=== PATIENT | male | born 1940 | race Caucasian/White ===

== ENCOUNTER 2017-01-03 16:16 | Emergency (ER) | payer MEDICARE, BC ==
[~2017-01-03 16:16] MED LIST: KLONO5 PO; LEVOTHROID75 MCG PO; LOP25 PO; P5 PO; T PO; VASOTEC5 PO; VOLT75 PO
[2017-01-03 17:10] LABS: BASOPHILS 0.3 %; BASOPHILS ABSOLUTE 0.03 10/3/uL (0.0-0.16); EOSINOPHILS 0.4 %; EOSINOPHILS ABSOLUTE 0.04 10/3/uL (0.0-0.53); HEMATOCRIT 48.6 % (40.0-51.0); IMMATURE GRANULOCYTES 0.4 %; IMMATURE GRANULOCYTES ABSOLUTE 0.04 10/3/uL (0.0-0.11); LYMPHOCYTES 11.3 %; LYMPHOCYTES ABSOLUTE 1.17 10/3/uL (0.67-4.30); MEAN CORPUS HGB CONC 32.9 g/dL (32.0-36.0); MEAN CORPUSCULAR HEMOGLOB 29.1 pg (26.0-34.0); MEAN PLATELET VOLUME 9.1 fL (9.2-13.0); MONOCYTES 12.1 %; MONOCYTES ABSOLUTE 1.25 10/3/uL (0.21-1.20); NEUTROPHILS 75.5 %; PLATELET COUNT 175 10/3/uL (150-400); RBC DISTRIBUTION WIDTH 16.4 % (12.0-16.0)
[2017-01-03 17:11] LABS: MEAN CORPUSCULAR VOLUME 88.4 fL (80-100); WHITE BLOOD CELLS 10.3 10/3/uL (4.5-10.5)
[2017-01-03 17:12] LABS: MANUAL DIFF NO %
[2017-01-03 17:17] LABS: INTERNATIONAL NORMAL RATI 1.3 UNITS (-); PROTIME (NOT ORD) 15.8 SEC (12.0-14.5)
[2017-01-03 17:28] LABS: BUN (BLOOD UREA NITROGEN) 24 MG/DL (6-23); CALCIUM, SERUM 9.8 MG/DL (8.5-10.4); CHEST PAIN PROFILE TAT 0 Hrs 23 Mins; CHLORIDE, SERUM 105 MMOL/L (96-112); CO2 (CARBON DIOXIDE) 29 MMOL/L (24-34); CREATININE 1.47 MG/DL (0.70-1.30); GFR AFRICAN AMERICAN 53 ML/MIN (>=60); GFR NON AFRICAN AMERICAN 45 ML/MIN (>=60); GLUCOSE, SERUM 106 MG/DL (60-99); POTASSIUM, SERUM 4.4 MMOL/L (3.5-5.3); SODIUM, SERUM 141 MMOL/L (135-148); TROPONIN I 0.46 NG/ML (<0.05)
[2017-01-03] MEDS ORDERED: MEDROL4 PO (21:29)
[2017-01-03] MEDS ORDERED: SYN075 PO (21:29)
[2017-01-03] MEDS ORDERED: TOPXL25 PO (21:31)
[2017-01-03] MEDS ORDERED: VASOTEC5 PO (21:31)
[2017-01-03] MEDS ORDERED: PRILOSEC40 MG PO (21:31)
[2017-01-03] MEDS ORDERED: CARD30 PO (21:32)
[2017-01-03] MEDS ORDERED: CIP5 PO (21:33)
[2017-01-03] MEDS ORDERED: K250 PO (21:35)
[2017-01-03] MEDS ORDERED: KLONO5 PO (21:36)
[2017-01-03] MEDS ORDERED: ALEVE220 MG PO (21:38)
[2017-01-03] MEDS ORDERED: TEARS PLUS OPH (21:38)
[2017-01-03] MEDS ORDERED: NASACORTAQ NAS (21:39)
[2017-01-03] MEDS ORDERED: ALLEGRA180 PO (21:42)
[2017-01-03] MEDS ORDERED: ROCEPHIN IM (21:43)
[2017-01-03] MEDS ORDERED: DUONEB INH (21:44)
[2017-01-04] MEDS ORDERED: LIPITOR40 PO (15:17)
[2017-01-04] MEDS ORDERED: ASAB PO (15:19)
== END 2017-01-03 16:44 | disposition left against medical advice (07) ==
LOC: ER 16:16
PROVIDERS: Emergency Medicine
DX: Z53.21 Procedure and treatment not carried out due to patient leaving prior to being seen by health care provider (principal)
CPT/HCPCS: 80048; 83735; 84484; 85025; 85610; 85730; 93005